=== PATIENT | male | born 1945 | race Caucasian/White ===

== ENCOUNTER 2017-02-21 21:36 | Emergency (ER) | payer OTHER ==
--- NOTE | 2017-02-21 21:42 | PDOC ---
History of Present Illness - General Chief Complaint: Injury Stated Complaint: INJURY TO LEFT HAND Time Seen by Provider: 02/21/17 21:41 - History of Present Illness Initial Comments: This 71-year-old man with a history of hypertension/gout/DVT, currently on warfarin therapy, presents with injury to the left hand. 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 Since then, he is had progressive swelling and bruising of the palmar aspects of all of the fingers. No other injury sustained. Patient taking medications as prescribed Past History - Past Medical History Allergies/Adverse Reactions: Allergies Allergy/AdvReac Type Severity Reaction Status Date / Time No Known Allergies Allergy Verified 02/21/17 21:38 Home Medications: Ambulatory Orders Allopurinol [Zyloprim -] 300 mg PO DAILY 12/17/14 Lisinopril [Prinivil -] 10 mg PO DAILY 12/17/14 Warfarin Sodium [Coumadin] 5 mg PO DAILY 12/17/14 Asthma: No Dementia: No Diabetes: No HTN: Yes - Surgical History Orthopedic Surgery: Yes (4 kn[facility] surgeries) - Psycho/Social/Smoking Cessation Hx Anxiety: No Suicidal Ideation: No Smoking Status: No Smoking History: Never smoked Have you smoked in the past 12 months: No Number of Cigarettes Smoked Daily: 0 'Breaking Loose' booklet given: 12/17/14 Hx Alcohol Use: Yes Substance Use Type: None Hx Substance Use Treatment: No Review of Systems - Review of Systems Able to Perform ROS?: Yes Comments:: 12 point review of systems is negative except for what is noted in the history of present illness *Physical Exam - Physical Exam Comments: GENERAL: Adult male, alert and oriented 3, in no acute distress HEAD: Normal with no signs of trauma. EYES: PERRLA, EOMI, sclera anicteric, conjunctiva clear. ENT: Ears normal, nares patent, oropharynx clear without exudates. Dry mucous membranes. NECK: Normal range of motion, supple without lymphadenopathy, JVD, or masses. LUNGS: Breath sounds equal, clear to auscultation bilaterally. No wheezes, and no crackles. HEART:Regular rate and rhythm, normal S1 and S2 without murmur, rub or gallop. ABDOMEN:.normal bowel sounds No guarding,tenderness or rebound.No masses No distention. EXTREMITIES: Left handmoderate edema present of all fingers and palm Moderate ecchymosis throughout palmar aspect of all fingers and palm Point tenderness palmar aspect of third and fourth fingers without gross deformity Distal neurovascular functioning intact in all fingers; warm and dry with good capillary refill Remainder of the extremity exam is normal NEUROLOGICAL: Cranial nerves II through XII grossly intact. Normal speech. No focal neurological deficits. MUSCULOSKELETAL: Back non-tender to palpation, no CVA tenderness SKIN: Warm, Dry, normal turgor, no rashes or lesions noted. Progress Note - Progress Note Progress Note: Left hand x-ray performed and interpreted by me. Volar plate fracture of the PIP joint, fourth finger clearly seen; PIP joint of the third finger likely also had a volar plate fracture. No other clear acute fracture/dislocation seen. Patient has old injury of fifth finger with distal deformity. Results discussed with the patient. Splints applied to PIP joints of the third and fourth fingers. Patient will follow-up with his orthopedist (Dr. Ivy, [facility], [facility] post (within the next few days Meanwhile, he should elevate and ice his hand as much as possible, keeping splints in place. He should return to the ER if he has worsening pain or swelling *DC/Admit/Observation/Transfer Diagnosis at time of Disposition: Finger fracture, left Qualifiers: Encounter type: initial encounter Finger: ring finger Fracture type: closed Phalanx: proximal Fracture alignment: nondisplaced Qualified Code(s): S62.645A - Nondisplaced fracture of proximal phalanx of left ring finger, initial encounter for closed fracture - Discharge Dispostion Disposition: HOME Condition at time of disposition: Stable - Patient Instructions Printed Discharge Instructions: Finger Fracture Additional Instructions: keep splints in place elevate/ice to hand as much as possible for next 2 days followup with your orthopedist within next 3-4 days
[2017-02-21 21:47] VITALS: BP 166/90; PULSE 88; TEMP 99; BMI 34.0
== END 2017-02-22 00:11 | disposition home or self-care (01) ==
LOC: FER 21:36
PROC: 2W3KX1Z Immobilization of Left Finger using Splint (ICD-10-PCS; principal; 2017-02-21)
DX: S62.645A Nondisplaced fracture of proximal phalanx of left ring finger, initial encounter for closed fracture (principal); X58.XXXA Exposure to other specified factors, initial encounter; Y93.89 Activity, other specified; Y92.9 Unspecified place or not applicable; Y99.0 Civilian activity done for income or pay; I10 Essential (primary) hypertension; Z86.718 Personal history of other venous thrombosis and embolism
CPT/HCPCS: 29130; Z7901; 73130-TC-LT; 99281-25

== ENCOUNTER 2018-09-08 20:38 | Emergency (ER) | payer OTHER ==
[2018-09-08 20:51] VITALS: BP 148/92; PULSE 69; TEMP 97.5; BMI 32.1
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
== END 2018-09-08 21:24 | disposition home or self-care (01) ==
LOC: FER 20:38
PROC: 0HQ1XZZ Repair Face Skin, External Approach (ICD-10-PCS; principal; 2018-09-08)
DX: S01.111A Laceration without foreign body of right eyelid and periocular area, initial encounter (principal); W22.8XXA Striking against or struck by other objects, initial encounter; Y93.89 Activity, other specified; Y92.813 Airplane as the place of occurrence of the external cause; I10 Essential (primary) hypertension; E78.5 Hyperlipidemia, unspecified; M10.9 Gout, unspecified; I82.409 Acute embolism and thrombosis of unspecified deep veins of unspecified lower extremity; Z79.01 Long term (current) use of anticoagulants
CPT/HCPCS: 99281-25

== ENCOUNTER 2021-12-17 08:09 | Day surgery (SDC) | payer OTHER ==
[2021-12-09 14:13] VITALS: BMI 35.9
[2021-12-17] MEDS: PHENYLEPHRINE 2.5% OPHTH SOLN 15 ML BOTTLE ONE ×3 (08:45→08:55)
[2021-12-17] MEDS: CYCLOPENTOLATE 2% OPHTH SOLN 2 ML BOTTLE ONE ×3 (08:45→08:55)
[2021-12-17] MEDS: CIPROFLOXACIN 0.3% EYE DROPS 5 ML BOTTLE ONE ×3 (08:45→08:55)
[2021-12-17] MEDS: TROPICAMIDE 1% OPHTH SOLN 15 ML BOTTLE ONE ×3 (08:45→08:55)
[2021-12-17] MEDS ORDERED: MIDAZOLAM HCL 2 MG/2 ML SINGLE DOSE VIAL ONE (09:33)
[2021-12-17 10:52] VITALS: TEMP 97.8
[2021-12-17 11:15] VITALS: BP 136/72; PULSE 64
== END 2021-12-17 11:29 | disposition home or self-care (01) ==
LOC: FASU 08:09
PROVIDERS: ATTEND Ophthalmology
PROC: 08RK3JZ Replacement of Left Lens with Synthetic Substitute, Percutaneous Approach (ICD-10-PCS; principal; 2021-12-17 10:15)
DX: H26.8 Other specified cataract (principal)
CPT/HCPCS: 66984; V2632